=== PATIENT | female | born 1930 | race Caucasian/White ===

== ENCOUNTER 2016-10-09 14:04 | Emergency (ER) | payer MEDICARE, OTHER ==
[2016-10-09 14:10] VITALS: BP 160/86
[2016-10-09] MEDS ORDERED: Ondansetron ODT TAB* 4 MG PO ONE (14:16)
[2016-10-09] MEDS ORDERED: Fluorescein Sodium TOPICAL* 1 MG TEST OPHTHALMIC ONE (14:20)
[2016-10-09] MEDS ORDERED: Eye Irrigation Solution 30 ML BOTTLE RIGHT EYE ONE (14:21)
[2016-10-09] MEDS ORDERED: Tetracaine 0.5% OPTH.SOL 4 ML* 1 DROP BTL RIGHT EYE ONE (14:33)
--- NOTE | 2016-10-09 14:57 | UC ---
Eye Complaint HPI - HPI Summary HPI Summary: Approx 2.5 hours ago had rapid onset FB sensation in R eye with copious tearing and inability to keep eye open. Shortly before this was outside weeding; no recent sanding, grinding, welding, or overhead work. Denies prior eye surgery or injury. - History of Current Complaint Chief Complaint: UCEye Stated Complaint: EYE COMPLAINT Time Seen by Provider: 10/09/16 14:16 Hx Obtained From: Patient ?: No Onset/Duration: Sudden Onset Timing: Constant Severity Initially: Moderate Severity Currently: Moderate Location of Injury: Conjunctiva Character: Foreign Body Sensation Aggravating Factor(s): Blinking Alleviating Factor(s): Nothing Associated Signs And Symptoms: Positive: Drainage (Clear) - Allergies/Home Medications Allergies/Adverse Reactions: Allergies Allergy/AdvReac Type Severity Reaction Status Date / Time Amoxicillin Allergy Diarrhea Verified 10/09/16 14:10 Erythromycin Allergy Nausea Verified 10/09/16 14:10 Fluticasone [From Flovent] Allergy CHEST Verified 10/09/16 14:10 PRESSURE Perfume [Fragrance] Allergy Unknown Verified 10/09/16 14:10 Reaction Details Prednisone Allergy CHEST Verified 10/09/16 14:10 PRESSURE Salmeterol [From Serevent] Allergy CHEST Verified 10/09/16 14:10 PRESSURE Theophylline Allergy SENSITIVITY Verified 10/09/16 14:10 CERTAIN PLASTICS Allergy PROBLEMS Uncoded 10/09/16 14:10 BREATHING ENVIRONMENTAL Allergy Unknown Uncoded 10/09/16 14:10 Reaction Details pollen Allergy Fatigue Uncoded 10/09/16 14:10 PMH/Surg Hx/FS Hx/Imm Hx Respiratory History: Asthma Psychological History: Depression - Surgical History Surgical History: Yes Surgery Procedure, Year, and Place: T and A Rhinoplasty cataract ladi. hip sx - Family History Known Family History: Positive: Hypertension - Social History Occupation: Retired Alcohol Use: Daily Alcohol Amount: 1 PER DAY Substance Use Type: None Smoking Status (MU): Never Smoked Tobacco - Immunization History Most Recent Influenza Vaccination: HAS NOT HAD Most Recent Tetanus Shot: UNSURE Most Recent Pneumonia Vaccination: HAS HAD Review of Systems Constitutional: Negative Skin: Negative Eyes: Drainage, Eye Redness ENT: Negative Respiratory: Negative Cardiovascular: Negative Gastrointestinal: Negative Genitourinary: Negative Motor: Negative Neurovascular: Negative Musculoskeletal: Negative Neurological: Negative Psychological: Negative All Other Systems Reviewed And Are Negative: Yes Physical Exam Triage Information Reviewed: Yes Appearance: Well-Appearing, No Pain Distress, Well-Nourished Vital Signs: Initial Vital Signs Temp 98 F 10/09/16 14:06 Pulse 66 10/09/16 14:06 Resp 20 10/09/16 14:06 BP 160/86 10/09/16 14:06 Pulse Ox 97 10/09/16 14:06 Eye Exam: Other - PERRL; R eye negative for fluorescein uptake except for arcus senilis Eyes: Positive: Conjunctiva Inflamed, Discharge - copious clear tears from R eye , Other: - R eyelid inversion, very small white speck removed from lateral upper lid with moistened swab. ENT: Positive: Hearing grossly normal, Pharynx normal, Nasal drainage - R side, clear. Negative: Tonsillar swelling, Tonsillar exudate Dental Exam: Normal Neck exam: Normal Neck: Positive: Supple, Nontender, No Lymphadenopathy Respiratory Exam: Normal Respiratory: Positive: Chest non-tender, Lungs clear, Normal breath sounds, No respiratory distress, No accessory muscle use Cardiovascular Exam: Normal Cardiovascular: Positive: RRR, No Murmur Musculoskeletal Exam: Normal Neurological Exam: Normal Neurological: Positive: Alert Psychological Exam: Normal Skin Exam: Normal Eye Complaint Course/Dx - Differential Dx/Diagnosis Provider Diagnoses: R eye foreign body removal Discharge - Discharge Plan Condition: Stable Disposition: HOME Prescriptions: Erythromycin OPTH OINT* 1 applic RIGHT EYE TID #1 ophth.oint Patient Education Materials: Corneal Abrasion (ED) Forms: *Work Release Referrals: Bronson Merlos MD [Primary Care Provider] - Azeem Kendall MD [Medical Doctor] - 2 Days Additional Instructions: Though I did not see a corneal abrasion on exam, your symptoms (and the suddenness of onset) suggest this happened while you were weeding. If this is the case, your eye should heal fully within 2-3 days. If you are still having significant symptoms at the end of this week, please see the ophthalmology office listed here. Please go to the emergency department at any point if you develop severe pain, visual changes, or if you otherwise worsen.
== END 2016-10-09 14:55 | disposition home or self-care (01) ==
LOC: UCEAST 14:04
DX: S00.251A Superficial foreign body of right eyelid and periocular area, initial encounter (principal); W45.8XXA Other foreign body or object entering through skin, initial encounter; Y93.H2 Activity, gardening and landscaping
CPT/HCPCS: 99212; A9270-GY; G0463

== ENCOUNTER 2019-11-14 08:20 | Inpatient (IN) ==
[~2019-11-14 08:20] MED LIST: Buffered Lidocaine 1% SYRIN 1 ml INTRADERM ONE; Lactated Ringers 1000 ml BAG 1,000 ML IV SCH
[2019-11-14] MEDS ORDERED: Buffered Lidocaine 1% SYRIN 1 ml INTRADERM ONE (08:53)
[2019-11-14] MEDS ORDERED: ceFAZolin 2 GM PREMIX 2 GM/50 ML BAG ONE (08:53)
[2019-11-14] MEDS ORDERED: Ondansetron 4 mg VIAL 2 MG/ML 2 ml VIAL ONE (09:13)
[2019-11-14] MEDS ORDERED: fentaNYL 100 mcg/2 ml 50 MCG/ML VIAL ONE ×2 (09:13→14:34)
[2019-11-14] MEDS ORDERED: Midazolam 2 mg/2 ml VIAL 1 mg/ml 2 ml VIAL (2 mg) ONE (09:13)
[2019-11-14] MEDS ORDERED: Lidocaine 2% PF 5 ML VIAL ONE (09:13)
[2019-11-14] MEDS ORDERED: Dexamethasone IV 4 MG/ML VIAL 1 ml VIAL ONE (09:13)
[2019-11-14] MEDS ORDERED: Bupivacaine 0.5% SDV PF 30ML VIAL ONE (09:13)
[2019-11-14] MEDS ORDERED: Propofol 10 MG/ML 20 ML BTL ONE (09:13)
[2019-11-14] MEDS ORDERED: Acetaminophen IV 1 GM/100ML 100 ML ONE (10:15)
[2019-11-14] MEDS ORDERED: Lactulose 30 ml UDC PO PRN (13:05)
[2019-11-14] MEDS ORDERED: Magnesium Hydroxide LIQ 30 ML UDC PO PRN (13:05)
[2019-11-14] MEDS ORDERED: Morphine 2 MG/ML SYRINGE IV PRN (13:05)
[2019-11-14] MEDS ORDERED: Ondansetron ODT 4 mg TAB 4 MG TAB PO PRN (13:05)
[2019-11-14] MEDS ORDERED: Ondansetron 4 mg VIAL 2 MG/ML 2 ml VIAL IV PRN (13:05)
[2019-11-14] MEDS ORDERED: diPHENhydraMINE 25 mg TAB PO PRN (13:05)
[2019-11-14] MEDS ORDERED: oxyCODONE/Acetamin 5/325 mg TAB PO PRN (13:05)
[2019-11-14] MEDS ORDERED: diPHENhydraMINE IV 50 MG/ML 1 ml VIAL (BENADRYL) IV PRN (13:05)
[2019-11-14] MEDS ORDERED: fentaNYL 100 mcg/2 ml 50 MCG/ML VIAL IV PRN (14:33)
[2019-11-14] MEDS ORDERED: Naloxone 0.4 mg VIAL 0.4 mg/ml 1 ml VIAL IV PRN (14:33)
[2019-11-14] MEDS ORDERED: EPHEDrine (Pressors) 50 MG/ML VIAL ONE (17:00)
[2019-11-14] MEDS: Lactated Ringers 1000 ml BAG 1,000 ML IV SCH ×2 (18:00→21:33)
[2019-11-14] MEDS ORDERED: Lactated Ringers 500 ml BAG 500 ML IV ONE ×2 (18:10→20:16)
[2019-11-14] MEDS ORDERED: Albuterol HFA INHALER 8 gm MDI INH PRN (18:18)
[2019-11-14] MEDS: Clindamycin 600 MG/D5W BAG 600 MG/50 ML BAG IV SCH (19:03)
[2019-11-14] MEDS: Magnesium Hydroxide LIQ 30 ML UDC PO SCH (20:27)
[2019-11-15] MEDS: Clindamycin 600 MG/D5W BAG 600 MG/50 ML BAG IV SCH ×2 (03:15→08:57)
[2019-11-15] MEDS: Lactated Ringers 1000 ml BAG 1,000 ML IV SCH (06:46)
[2019-11-15 07:09] LABS: Hematocrit 18 % (35-47); Hemoglobin 6.6 g/dL (12.0-16.0); Mean Platelet Volume 8.6 fL (7.4-10.4); Platelet Count 125 10^3/uL (150-450)
[2019-11-15 07:26] LABS: BUN/Creatinine Ratio 18.8 (8-20); Calcium 7.8 mg/dL (8.6-10.3); EGFR African American 62.4 (>60); EGFR Non-African American 51.6 (>60)
[2019-11-15] MEDS: Vitamin THERAPEUTIC TAB PO SCH (08:59)
[2019-11-15] MEDS: Olopatadine 0.1% OPHTH (NF) 1 DROP BTL BOTH EYES SCH (09:00)
[2019-11-15] MEDS: Magnesium Hydroxide LIQ 30 ML UDC PO SCH ×2 (09:00→20:07)
[2019-11-15] MEDS ORDERED: NS 0.9% 1000 ml BAG 1,000 ML IV SCH (10:00)
[2019-11-15 13:47] LABS: Urine Creatinine Concentration 103.16 mg/dL; Urine Sodium Concentration < 18 mmol/L
[2019-11-15 18:17] LABS: Hematocrit 25 % (35-47); Hemoglobin 8.9 g/dL (12.0-16.0)
[2019-11-15 18:31] LABS: Calcium 7.9 mg/dL (8.6-10.3); EGFR African American 63.2 (>60); EGFR Non-African American 52.2 (>60)
[2019-11-15 18:41] LABS: Potassium 5.1 mmol/L (3.5-5.0)
[2019-11-15] MEDS ORDERED: URE NA PO ONE (20:00)
[2019-11-16 06:10] LABS: Hematocrit 22 % (35-47); Hemoglobin 8.1 g/dL (12.0-16.0); Mean Platelet Volume 8.3 fL (7.4-10.4); Platelet Count 106 10^3/uL (150-450)
[2019-11-16 06:38] LABS: CO2 Carbon Dioxide 31 mmol/L (22-32); Calcium 7.9 mg/dL (8.6-10.3); Chloride 93 mmol/L (101-111); Sodium 124 mmol/L (135-145)
[2019-11-16 06:44] LABS: BUN/Creatinine Ratio 30.5 (8-20); Blood Urea Nitrogen 32 mg/dL (6-24); EGFR African American 59.7 (>60); EGFR Non-African American 49.3 (>60); Glucose 106 mg/dL (70-100)
[2019-11-16 06:49] LABS: Potassium 5.5 mmol/L (3.5-5.0)
[2019-11-16] MEDS ORDERED: Sodium Polystyrene ORAL.SUSP 15 GM/60 ML BTL PO ONE (08:10)
[2019-11-16] MEDS: URE NA PO SCH (10:12)
[2019-11-16] MEDS: Vitamin THERAPEUTIC TAB PO SCH (10:12)
[2019-11-16] MEDS: Olopatadine 0.1% OPHTH (NF) 1 DROP BTL BOTH EYES SCH (10:14)
[2019-11-16] MEDS: Magnesium Hydroxide LIQ 30 ML UDC PO SCH ×2 (10:14→21:57)
[2019-11-16 15:10] LABS: Hematocrit 23 % (35-47); Hemoglobin 7.9 g/dL (12.0-16.0)
[2019-11-16 15:48] LABS: BUN/Creatinine Ratio 52.3 (8-20); Blood Urea Nitrogen 56 mg/dL (6-24); CO2 Carbon Dioxide 33 mmol/L (22-32); Calcium 8.1 mg/dL (8.6-10.3); Chloride 95 mmol/L (101-111); EGFR African American 58.4 (>60); EGFR Non-African American 48.3 (>60); Glucose 110 mg/dL (70-100); Potassium 4.9 mmol/L (3.5-5.0); Sodium 128 mmol/L (135-145)
[2019-11-16 16:17] LABS: Activated Partial Thrombo Time 26.3 seconds (26.0-38.0); INR 1.08 (0.82-1.09)
[2019-11-17 06:05] LABS: ABS Eosinophils 0.1 10^3/ul (0-0.6); ABS Lymphocytes 0.5 10^3/ul (1.0-4.8); ABS Monocytes 0.4 10^3/ul (0-0.8); ABS Neutrophils 2.7 10^3/ul (1.5-7.7); Eosinophil % 1.6 %; Hematocrit 25 % (35-47); Hemoglobin 8.9 g/dL (12.0-16.0); Lymphocyte % 14.5 %; Mean Corpuscular HGB Conc 36 g/dL (31-36); Mean Corpuscular Hemoglobin 31 pg (27-31); Mean Corpuscular Volume 88 fL (80-97); Mean Platelet Volume 8.2 fL (7.4-10.4); Platelet Count 112 10^3/uL (150-450); Red Blood Count 2.85 10^6 /uL (3.70-4.87); Red Cell Distribution Width 15 % (10-15); White Blood Count 3.7 10^3/uL (3.5-10.8)
[2019-11-17 06:25] LABS: BUN/Creatinine Ratio 33.3 (8-20); Calcium 8.3 mg/dL (8.6-10.3); EGFR African American 61.7 (>60); Potassium 4.2 mmol/L (3.5-5.0)
[2019-11-17] MEDS: Vitamin THERAPEUTIC TAB PO SCH (08:35)
[2019-11-17] MEDS: Magnesium Hydroxide LIQ 30 ML UDC PO SCH (08:39)
[2019-11-17] MEDS: URE NA PO SCH (08:40)
[2019-11-17] MEDS: Olopatadine 0.1% OPHTH (NF) 1 DROP BTL BOTH EYES SCH (08:40)
[2019-11-17 11:32] VITALS: BP 104/53
== END 2019-11-17 13:40 | disposition home health service (06) | DRG 470 ==
LOC: OR 08:20 → SSU 08:20 → OBSVTOIN 18:04
PROVIDERS: ADMIT Orthopaedic Surgery Adult Reconstructive Orthopaedic Surgery; ATTEND Internal Medicine